=== PATIENT | female | born 1965 | race Caucasian/White ===

== ENCOUNTER 2018-07-05 07:25 | Inpatient (IN) | payer MEDICAID ==
[2018-07-05 08:41] LABS: ADD MAN DIFF? NO
[2018-07-05 08:43] LABS: WHITE BLOOD COUNT 6.7 10^3/ul (4.8-10.8)
[2018-07-05 08:43] LABS: BASOPHILS % 0.6 % (0.0-2.0); EOSINOPHILS # 0.2 10^3/ul (0.0-0.5); EOSINOPHILS % 2.7 % (0.0-7.0); HEMATOCRIT 40.9 % (37.0-47.0); HEMOGLOBIN 13.2 g/dl (12.0-16.0); LYMPHOCYTES # 2.4 10^3/ul (0.8-2.9); MEAN CORPUSCULAR HEMOGLOBIN 28.9 pg (29.0-33.0); MEAN CORPUSCULAR HGB CONC 32.3 g/dl (32.0-37.0); MEAN CORPUSCULAR VOLUME 89.5 fl (82.0-101.0); MEAN PLATELET VOLUME 9.9 fl (7.4-10.4); MONOCYTE # 0.4 10^3/ul (0.3-0.9); MONOCYTES % 5.8 % (0.0-11.0); NEUTROPHIL # 3.7 10^3/ul (1.6-7.5); NEUTROPHILS % 55.5 % (39.0-77.0); PLATELET COUNT 271 10^3/UL (140-415); RED BLOOD COUNT 4.57 10^6/ul (4.20-5.40); RED CELL DISTRIBUTION WIDTH 14.3 % (11.5-14.5)
[2018-07-05 09:03] LABS: INR 0.92; PROTIME 12.4 Sec (11.9-14.9)
[2018-07-05 09:04] LABS: PARTIAL THROMBOPLASTIN TIME 30.9 Sec (23.0-35.0)
[2018-07-05 09:11] LABS: ANION GAP 13 (8-16); BLOOD UREA NITROGEN 14 mg/dl (7-20); CALCIUM 9.3 mg/dl (8.4-10.2); CARBON DIOXIDE 28 mmol/L (21-31); CHLORIDE 108 mmol/L (97-110); CHOL/HDL RATIO 3.3 RATIO; CHOLESTEROL 112 mg/dl (100-200); CREATININE 0.78 mg/dl (0.44-1.00); GLUCOSE 106 mg/dl (70-220); HDL CHOLESTEROL 33 mg/dl (37-92); LDL CHOLESTEROL,CALCULATED 41 mg/dl; POTASSIUM 3.9 mmol/L (3.5-5.1); SODIUM 145 mmol/L (135-144); TRIGLYCERIDES 191 mg/dl (0-149)
[2018-07-05 09:15] LABS: HEMOGLOBIN A1C 5.7 % (0-5.9)
[2018-07-05 09:21] LABS: TROPONIN-I < 0.012 ng/ml (0.000-0.120)
[2018-07-05] MEDS ORDERED: ONDANSETRON 4 MG INJ IV ×2 (10:00→18:00)
[2018-07-05] MEDS: ACETAMINOPHEN 325 MG TAB PO (10:07)
[2018-07-05] MEDS: ASPIRIN 325 MG TAB PO (10:07)
[2018-07-05] MEDS: IBUPROFEN 800 MG TAB PO (12:31)
[2018-07-05] MEDS ORDERED: MAGNESIUM HYDROXIDE 30ML CUP PO (18:00)
[2018-07-05] MEDS ORDERED: NACL 0.9% 3 ML SYG IV (18:00)
[2018-07-05] MEDS ORDERED: morphine 2 MG INJ IV (18:00)
[2018-07-05] MEDS ORDERED: HYDROCODONE/APAP (5/325) TAB PO (18:00)
[2018-07-05] MEDS ORDERED: DOCUSATE SODIUM 100 MG CAP PO (18:00)
[2018-07-05] MEDS ORDERED: ZOLPIDEM 5 MG TAB PO (18:00)
[2018-07-05] MEDS: ATORVASTATIN 40 MG TAB PO (22:01)
[2018-07-05] MEDS: HYDROCHLOROTHIAZIDE 25 MG TAB PO (22:02)
[2018-07-06 06:56] LABS: ADD MAN DIFF? NO
[2018-07-06 07:03] LABS: WHITE BLOOD COUNT 9.2 10^3/ul (4.8-10.8)
[2018-07-06 07:03] LABS: BASOPHIL # 0.1 10^3/ul (0.0-0.1); BASOPHILS % 0.7 % (0.0-2.0); EOSINOPHILS # 0.2 10^3/ul (0.0-0.5); EOSINOPHILS % 2.1 % (0.0-7.0); HEMOGLOBIN 13.2 g/dl (12.0-16.0); LYMPHOCYTES # 2.9 10^3/ul (0.8-2.9); LYMPHOCYTES % 31.3 % (15.0-51.0); MEAN CORPUSCULAR HEMOGLOBIN 28.9 pg (29.0-33.0); MEAN CORPUSCULAR HGB CONC 32.2 g/dl (32.0-37.0); MEAN CORPUSCULAR VOLUME 89.9 fl (82.0-101.0); MEAN PLATELET VOLUME 10.5 fl (7.4-10.4); MONOCYTE # 0.5 10^3/ul (0.3-0.9); MONOCYTES % 5.7 % (0.0-11.0); NEUTROPHIL # 5.5 10^3/ul (1.6-7.5); NEUTROPHILS % 59.8 % (39.0-77.0); PLATELET COUNT 280 10^3/UL (140-415); RED BLOOD COUNT 4.56 10^6/ul (4.20-5.40); RED CELL DISTRIBUTION WIDTH 14.5 % (11.5-14.5)
[2018-07-06 07:25] LABS: ANION GAP 13 (8-16); BLOOD UREA NITROGEN 17 mg/dl (7-20); CALCIUM 9.5 mg/dl (8.4-10.2); CARBON DIOXIDE 28 mmol/L (21-31); CHLORIDE 105 mmol/L (97-110); CHOL/HDL RATIO 3.1 RATIO; CHOLESTEROL 110 mg/dl (100-200); CREATININE 0.84 mg/dl (0.44-1.00); GLUCOSE 103 mg/dl (70-220); HDL CHOLESTEROL 35 mg/dl (37-92); LDL CHOLESTEROL,CALCULATED 31 mg/dl; MAGNESIUM 1.8 mg/dl (1.7-2.5); PHOSPHORUS 3.6 mg/dl (2.5-4.9); POTASSIUM 4.3 mmol/L (3.5-5.1); SODIUM 142 mmol/L (135-144); TRIGLYCERIDES 218 mg/dl (0-149)
[2018-07-06] MEDS: ACETAMINOPHEN 325 MG TAB PO (08:14)
[2018-07-06] MEDS: HYDROCHLOROTHIAZIDE 25 MG TAB PO (08:15)
[2018-07-06] MEDS: ASPIRIN (EC) 325 MG TAB PO (08:15)
[2018-07-06] MEDS: ENOXAPARIN 40 MG/0.4 ML SYG SC (08:22)
[2018-07-06] MEDS ORDERED: HYDROCHLOROTHIAZIDE 25 MG TAB PO (09:00)
[2018-07-06 12:22] LABS: ERYTHROCYTE SEDIMENTATION RATE 14 mm/Hr (0-30)
[2018-07-06] MEDS: INFLUENZA VIRUS VACCINE 0.5 ML (DISPENSING) IM* (12:35)
[2018-07-06 13:58] LABS: HEMOGLOBIN A1C 5.6 % (0-5.9)
[2018-07-06 15:04] LABS: ADD UMIC YES; UR ASCORBIC ACID NEGATIVE (NEGATIVE); UR BILIRUBIN (Dip) NEGATIVE (NEGATIVE); UR BLOOD (Dip) 2+ mg/dL (NEGATIVE); UR CLARITY CLEAR (CLEAR); UR COLOR YELLOW (YELLOW); UR GLUCOSE (Dip) NEGATIVE (NEGATIVE); UR KETONES (Dip) NEGATIVE (NEGATIVE); UR LEUKOCYTE ESTERASE (Dip) NEGATIVE Leu/ul (NEGATIVE); UR NITRITE (Dip) NEGATIVE (NEGATIVE); UR RBC 6 /HPF (0-5); UR SPECIFIC GRAVITY (Dip) 1.011 (1.003-1.030); UR TOTAL PROTEIN (Dip) 1+ mg/dl (NEGATIVE); UR UROBILINOGEN (Dip) NEGATIVE (NEGATIVE); UR WBC 1 /HPF (0-5)
[2018-07-06 15:55] LABS: RAPID PLASMA REAGIN NONREACTIVE (NR)
[2018-07-06 16:03] LABS: AMPHETAMINE/METHAMPHETAMINE NEGATIVE (NEGATIVE); BARBITURATES NEGATIVE (NEGATIVE); BENZODIAZEPINES NEGATIVE (NEGATIVE); CANNABINOIDS NEGATIVE (NEGATIVE); COCAINE NEGATIVE (NEGATIVE); OPIATES NEGATIVE (NEGATIVE)
[2018-07-06] MEDS ORDERED: morphine LIQ (10 MG/5 ML) CUP PO (17:00)
[2018-07-06] MEDS: ATORVASTATIN 40 MG TAB PO (20:52)
[2018-07-07] MEDS: HYDROCHLOROTHIAZIDE 25 MG TAB PO (09:05)
[2018-07-07] MEDS: ASPIRIN (EC) 325 MG TAB PO (09:05)
[2018-07-07] MEDS: ENOXAPARIN 40 MG/0.4 ML SYG SC (09:07)
[2018-07-07] MEDS: FISH OIL 1,000 MG CAP PO (13:01)
[2018-07-07 16:20] LABS: HOMOCYSTEINE - CARDIOVASCULAR 10.9 umol/L (<10.4)
== END 2018-07-07 13:08 | disposition still patient (30) | DRG 103 ==
LOC: E/R 07:25 → TEL 09:38
DX: G43.909 Migraine, unspecified, not intractable, without status migrainosus (principal); G81.94 Hemiplegia, unspecified affecting left nondominant side; Z68.42 Body mass index [BMI] 45.0-49.9, adult; E66.01 Morbid (severe) obesity due to excess calories; I10 Essential (primary) hypertension; E78.5 Hyperlipidemia, unspecified
CPT/HCPCS: 36415; 70450; 70552; 71045; 80048; 80061; 80307; 81001; 82962; 83036; 83090; 83735; 84100; 84484; 85025; 85610; 85651; 85730; 86592; 90686; 92610; 93005; 93306; 93880; 97161; 99285-25